=== PATIENT | female | born 1935 | race Caucasian/White ===

== ENCOUNTER 2016-10-31 13:29 | Emergency (ER) | payer MEDICARE, OTHER ==
--- NOTE | ~2016-10-31 | CR72 ---
[facility]. [facility] A Service of [facility] & [facility] RADIOLOGY TEXT RESULTS PATIENT: JESSICA EVERETT LOCATION: SED : 31 UNIT #: [id number] AGE: [address]: Mehdi Arizmendi MD SEX: F ORDER DR: [id number] [address] [address] [id number] E MR#: [id number] Acc #: [id number] NAME: JESSICA EVERETT : 1935 SEX: F STUDY DATE/TIME: 10/31/2016 12:48 UNIT: SED ROOM: STUDY DESCRIPTION: CR Chest Single View Portable Attending Physician: Mehdi Arizmendi M.D. Referring Physician: Mehdi Arizmendi M.D. Ordering Physician: Mehdi Collins[address] Arizmendi Primary Care Physician: Reva Mcdonald M.D. MEDICAL IMAGING REPORT This report is preliminary unless electronic signature is present. EXAM Chest portable 10/31/2016 1248 hours HISTORY 81-year-old woman with dizziness for 2 days and occipital headache. COMPARISON 07/05/2015 FINDINGS Portable upright chest demonstrates heart size at the upper limits of normal. Aorta is mildly tortuous. Lungs are hyperinflated with calcified granulomata unchanged. There is no acute pulmonary density or pleural effusion. IMPRESSION Heart size at the upper limits of normal with stable mildly tortuous aorta. Lungs are hyperinflated with calcified granulomatous changes. There are no acute pulmonary or pleural findings. Dictated by... Leena Kulkarni M.D. THIS IS AN ELECTRONICALLY VERIFIED REPORT Leena Kulkarni M.D. at 10/31/2016 2:31 PM Payal TD: 10/31/2016 13:45 JOB #: [id number] MEDICAL IMAGING REPORT Page 1 of 1
--- NOTE | ~2016-10-31 | EKG ---
PATIENT: JESSICA EVERETT UNIT #: [id number] Ventricular Rate: 69 BPM Atrial Rate: 69 BPM P-R Interval: 156 ms QRS Duration: 78 ms Q-T Interval: 422 ms QTC Calculation(Bezet): 452 ms P Whiteside: 55 degrees Calculated R Whiteside: 2 degrees Calculated T Whiteside: 28 degrees Diagnosis Line: Normal sinus rhythm Diagnosis Line: Voltage criteria for left ventricular hypertrophy Diagnosis Line: Otherwise normal ECG Diagnosis Line: When compared with ECG of 05-JUL-2015 13:58, Diagnosis Line: Minimal criteria for Septal infarct are no longer Diagnosis Line: Present Diagnosis Line: Confirmed by NANCY BRAUN MD ([id number]) on 11/03/2016 Diagnosis Line: 3:42:48 PM INTERPRETING MD: KADE FLORES
--- NOTE | ~2016-10-31 | CT71 ---
[facility] A Service of [facility] RADIOLOGY TEXT RESULTS PATIENT: JESSICA EVERETT LOCATION: SED : 33 UNIT #: [id number] AGE: [address]: Mehdi Arizmendi MD SEX: F ORDER DR: [id number] [place] [id number] E MR#: [id number] Acc #: [id number] NAME: JESSICA EVERETT : 1935 SEX: F STUDY DATE/TIME: 10/31/2016 12:45 UNIT: SED ROOM: STUDY DESCRIPTION: CT Head Wo Contrast Attending Physician: Mehdi Arizmendi M.D. Referring Physician: Mehdi Arizmendi M.D. Ordering Physician: Mehdi Collins75 [address] Arizmendi Primary Care Physician: Reva Mcdonald M.D. MEDICAL IMAGING REPORT This report is preliminary unless electronic signature is present. EXAM Head CT 10/31 INDICATIONS Headache in the occipital area with dizziness for the last 2 days. History of hypertension and breast cancer. TECHNIQUE Axial images were obtained from the base to the vertex without contrast. No comparison. This CT exam was performed with one or more of the following radiation dose reduction techniques: automatic exposure control, adjustment of mA and/or kV according to patient size, and iterative reconstruction. FINDINGS There is generalized atrophy. Ventricular size and configuration are within normal limits. Advanced chronic small vessel ischemic changes are present in the white matter. There is no acute infarct or hemorrhage. There are no masses. There are some atherosclerotic calcifications in the carotid siphons. There are no skull fractures. IMPRESSION No acute intracranial abnormalities. There is generalized atrophy with chronic small vessel ischemic disease in the white matter. Dictated by... Dakotah Muller Jr., M.D. THIS IS AN ELECTRONICALLY VERIFIED REPORT Dakotah Muller Jr., M.D. at 10/31/2016 7:03 PM [facility] A Service of [facility] RADIOLOGY TEXT RESULTS PATIENT: JESSICA EVERETT LOCATION: SED : 33 UNIT #: [id number] AGE: [address]: Mehdi Arizmendi MD SEX: F ORDER DR: FANY/georgette TD: 10/31/2016 13:56 JOB #: [id number] MEDICAL IMAGING REPORT Page 1 of 1
[2016-10-31 12:33] LABS: BASOPHIL# 0.1 X10e3 (0-0.3); EOSINOPHIL# 0.1 X10e3 (0-0.7); EOSINOPHIL% 2.4 % (0.0-7.0); HEMATOCRIT 40.5 % (35.0-45.0); HEMOGLOBIN 13.4 gm/dL (12.0-16.0); LYMPHOCYTE# 1.2 X10e3 (1.0-3.5); LYMPHOCYTE% 22.6 % (17.0-45.0); MEAN CORPUSCULAR HEMOGLOBIN 33.1 PG (28-34); MEAN CORPUSCULAR HGB CONC 33.1 g/dL (30-36); MEAN PLATELET VOLUME 9.1 FL (6.5-11.5); MONOCYTE# 0.5 X10e3 (0-1.0); MONOCYTE% 8.9 % (3.0-12.0); NEUTROPHIL# 3.4 X10e3 (1.5-7.1); NEUTROPHIL% 65.1 % (40-75); PLATELET COUNT 167 X10e3 (140-420); RED BLOOD COUNT 4.05 X10e (3.90-5.30); WHITE BLOOD COUNT 5.2 X10e3 (4.0-10.5)
[2016-10-31 12:35] LABS: DIFF IND NO
[2016-10-31 12:39] LABS: POC - CKMB 3.8 ng/mL (0.0-7.9); POC - TROPONIN <0.05 ng/mL (<=0.05)
[2016-10-31 12:52] LABS: ALBUMIN SERUM 3.9 g/dL (3.5-5.0); BILIRUBIN, DIRECT 0.1 mg/dL (0.0-0.2); BILIRUBIN,INDIRECT 0.6 mg/dL (0.0-0.9); BILIRUBIN,TOTAL 0.7 mg/dL (0.2-2.0); BUN/CREATININE RATIO 33.33; CALCIUM SERUM 8.9 mg/dL (8.4-10.2); CREATININE SERUM 0.6 mg/dL (0.6-1.4); GLOM FILT RATE Estimated 84.3 mL/min (>60); POTASSIUM 3.6 mmol/L (3.5-5.1); PROTEIN TOTAL SERUM 6.3 g/dL (6.0-8.3)
[2016-10-31 13:20] LABS: URINE APPEARANCE CLEAR; URINE BILIRUBIN NEG (NEG); URINE BLOOD NEG (NEG); URINE COLOR YELLOW; URINE GLUCOSE NEG (NORM); URINE KETONE NEG (NEG); URINE LEUKOCYTE ESTERASE NEG (NEG); URINE NITRATE NEG (NEG); URINE PROTEIN NEG (NEG); URINE UROBILINOGEN 0.2 MG/DL (NORM)
[2016-10-31 13:21] LABS: MICRO INDICATED? NO; URINE SOURCE CLEAN CATCH
[~2016-10-31 13:29] MED LIST: ADVAIR 2501 DISK W/1 INH; ASMONEX; ASPIRIN PO; ASPIRIN81 M2 PO; CENTRUM PO; COREG CR80 MG PO; COREG PO; DOXYCYCLINE PO; FORADIL12 MCG NEB; GLUCOSAMINE; GLUCOSAMINE500 M1 PO; HUMALOG; ICAP; ICAPS; ICAPS MV TAB1 TAB.EC PO; INSULIN PUMP; LIPITOR PO; LISINOPRIL PO; MULTI VITAMIN1 EACH PO; OPTIFLEX-C400 MG PO; SINGULAIR PO; SYSTANE ULTRA 010 ML OU; VITAMIN D2000 UNI1 PO; ZESTRIL5 MG PO
== END 2016-10-31 14:16 | disposition home or self-care (01) ==
LOC: SED 13:29
PROVIDERS: Emergency Medicine
DX: I10 Essential (primary) hypertension (principal); R51 Headache; R42 Dizziness and giddiness; E11.9 Type 2 diabetes mellitus without complications; E78.5 Hyperlipidemia, unspecified; J44.9 Chronic obstructive pulmonary disease, unspecified; Z98.890 Other specified postprocedural states; Z79.4 Long term (current) use of insulin; Z79.899 Other long term (current) drug therapy
CPT/HCPCS: 36415; 70450; 71010; 80048; 80076; 81003; 82553; 82947; 84484; 85025; 93005; 96361; 96374; 96375; 99284; J1100; J2405